=== PATIENT | female | born 1985 | race Caucasian/White ===

== ENCOUNTER 2022-03-02 03:22 | Emergency (ER) | payer MEDICAID ==
[~2022-03-02] VITALS: Ht 160 cm; Wt 70.0 kg
[2022-03-02] MEDS ORDERED: NAPR-1176 MT (03:44)
[2022-03-02] MEDS ORDERED: CYCL10TA7 MT (03:44)
[2022-03-02] MEDS ORDERED: IBUPROFEN 800MG TABLET PO ONE (03:45)
[2022-03-02 03:57] VITALS: BP 159/102
== END 2022-03-02 04:00 | disposition home or self-care (01) ==
LOC: ER 03:22
DX: S39.012A Strain of muscle, fascia and tendon of lower back, initial encounter (principal); S16.1XXA Strain of muscle, fascia and tendon at neck level, initial encounter; S00.83XA Contusion of other part of head, initial encounter; S40.022A Contusion of left upper arm, initial encounter; W22.11XA Striking against or struck by driver side automobile airbag, initial encounter; R03.0 Elevated blood-pressure reading, without diagnosis of hypertension; V49.49XA Driver injured in collision with other motor vehicles in traffic accident, initial encounter; Y93.89 Activity, other specified; Y92.488 Other paved roadways as the place of occurrence of the external cause
CPT/HCPCS: 99283